=== PATIENT | male | born 1960 | race Caucasian/White ===

== ENCOUNTER 2020-11-10 16:24 | Emergency (ER) | payer OTHER, SELFPAY | END 2020-11-11 02:43 | disposition left against medical advice (07) | LOC: ANHED 16:56 | DX: Z53.21 Procedure and treatment not carried out due to patient leaving prior to being seen by health care provider (principal) | CPT/HCPCS: 99199 ==

== ENCOUNTER 2020-11-11 07:11 | Emergency (ER) | payer OTHER, SELFPAY ==
[2020-11-11 07:16] VITALS: BP 134/86; PULSE 56; RESP 20; TEMP 36.5; O2SAT 98
--- NOTE | 2020-11-11 08:39 | ED.GENADULT ---
HPI - General Adult General Chief complaint: Eye Problems Stated complaint: cellulitis Time Seen by Provider: 11/11/20 08:21 Source: patient Mode of arrival: ambulatory Limitations: no limitations History of Present Illness HPI narrative: 60 years old white male presents with redness and pain at the right upper eyelid started 6 days ago. Patient reported having a pimple-like lesion, popped it and squeezed it. Was seen at urgent care yesterday and was asked to go to the emergency room, patient came today. Patient denies any fever, chills, nausea, vomiting, vision change, eye discharge, history of hyperlipidemia, patient denies history of diabetes or any medical issues. Patient does not smoke or drink or uses drugs. Related Data Home Medications Medication Instructions Recorded Confirmed aspirin 81 mg PO DAILY 01/06/19 01/06/19 atorvastatin [Lipitor] 10 mg PO DAILY 01/06/19 01/06/19 cetirizine [Zyrtec] 10 mg PO DAILY 01/06/19 01/06/19 cholecalciferol (vitamin D3) 1,000 unit PO DAILY 01/06/19 01/06/19 [Vitamin D3] citalopram [Celexa] 20 mg PO DAILY 01/06/19 01/06/19 docusate sodium [Colace] 100 mg PO BID 01/06/19 01/06/19 fenofibrate 160 mg PO DAILY 01/06/19 01/06/19 flaxseed oil 1,000 mg PO DAILY 01/06/19 01/06/19 omeprazole magnesium [Prilosec OTC] 20 mg PO BID 01/06/19 01/06/19 linaclotide [Linzess] mcg 11/11/20 Allergies Allergy/AdvReac Type Severity Reaction Status Date / Time No Known Allergies Allergy Verified 11/11/20 07:25 Review of Systems Review of Systems: CONSTITUTIONAL: Denies fever, chills, or sweats. EYES: Denies visual changes, redness, or discharge. ENT: Denies rhinorrhea, congestion, sore throat, or otalgia. CARDIOVASCULAR: Denies chest pain, palpitations, or edema. RESPIRATORY: Denies cough or dyspnea. GASTROINTESTINAL: Denies abdominal pain, nausea, vomiting, or diarrhea. GENITOURINARY: Denies dysuria or hematuria. SKIN: Denies rash or itching. MUSCULOSKELETAL: Denies back pain, joint pain, or myalgia. NEUROLOGIC: Denies headache, numbness, or weakness. PSYCHIATRIC: Denies anxiety or depression. [facility] Past Medical History Medical History Anxiety Depression Fracture, clavicle right,1979 GERD (gastroesophageal reflux disease) HLD (hyperlipidemia) Surgical History Surgical History History of cholecystectomy Family History Family History Sibling Acute myocardial infarction, Onset Age: 48 Mother Breast cancer Exam Narrative: General appearance: Well-developed, well-nourished Skin: Normal color Head: Normocephalic, nontraumatic Eyes: Clear conjunctiva ENT: Oropharynx normal, ears normal, nose normal Neck: Supple, nontender Chest and respiratory: Airway patent, no respiratory distress, no accessory muscle use Heart: Regular rate/rhythm Abdomen: Soft, nontender, no organomegaly, quiet bowel sounds Vascular: Normal peripheral pulses, normal capillary refill. 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
[2020-11-11 08:49] LABS: Basophils Percent Auto 0.7 % (0.2-1.2); Eosinophils Absolute Auto 0.3 K/mm3 (0-0.3); Eosinophils Percent Auto 5.2 % (0-4.4); Hematocrit 41.9 % (42.0-52.0); Hemoglobin 14.2 g/dL (14.0-18.0); Immature Granulocyte Absolute 0.02 K/mm3 (0.00-0.031); Immature Granulocyte Percent A 0.4 % (0-0.5); Lymphocytes Absolute Auto 1.63 K/mm3 (0.9-3.2); Lymphocytes Percent Auto 29.3 % (18.3-44.2); Mean Corpuscular HGB Conc 33.9 g/dl (32-36); Mean Corpuscular Hemoglobin 29.9 pg (26-34); Mean Corpuscular Volume 88.2 fl (80-100); Mean Platelet Volume 10.4 fl (7.4-10.4); Monocytes Absolute Auto 0.6 K/mm3 (0.1-0.6); Monocytes Percent Auto 10.2 % (2.6-8.5); Neutrophils Percent Auto 54.2 % (45.5-73.1); Platelet Count Result 234 k/mm3 (150-375); Red Blood Count 4.75 M/mm3 (4.6-6.20); Red Cell Distribution Width 13.3 % (11.5-14.5); White Blood Count 5.6 K/mm3 (4.5-10.0)
[2020-11-11 09:12] LABS: Anion Gap 7 mmol/L (8-16); Blood Urea Nitrogen 12 mg/dL (9-20); Calcium 9.1 mg/dL (8.4-10.2); Carbon Dioxide 26 mmol/L (22-30); Chloride 106 mmol/L (98-107); Estimated CRCL calculation 110 ml/min; Estimated Glomerular Filt Rate > 60; Glucose 117 mg/dL (65-110); Potassium 3.8 mmol/L (3.4-5.0); Sodium 139 mmol/L (137-145)
[2020-11-11 09:31] VITALS: BP 119/68; PULSE 56; RESP 18; O2SAT 98
[2020-11-11 10:47] VITALS: BP 107/68; PULSE 55; RESP 20; TEMP 36.5; O2SAT 99
[2020-11-11 11:30] VITALS: BP 109/65; PULSE 55; RESP 20; O2SAT 97
== END 2020-11-11 11:32 | disposition home or self-care (01) ==
PROVIDERS: Emergency Provider Emergency Medicine
DX: L03.213 Periorbital cellulitis (principal); E78.5 Hyperlipidemia, unspecified; Z79.82 Long term (current) use of aspirin; Z79.899 Other long term (current) drug therapy
CPT/HCPCS: 36415; 80048; 85025; 96365; 96366; 99284; J3370

== ENCOUNTER → 2020-11-21 10:33 | Outpatient (CLI) | payer OTHER, SELFPAY ==
--- NOTE | ~2020-11-21 | XR_ITS ---
XR barium swallow DATE: 11/21/2020 11:53 INDICATION: Lump on left side of esophagus when swallowing saliva since May 2020. History of acid r eflux. TECHNIQUE: 0.5 minutes fluoroscopy time 88 images DAP: 17.845 COMPARISON: None FINDINGS: There is normal deglutition and esophageal peristalsis. No stricture, mucosal fold thickeni ng, erosion, ulceration, intraluminal mass lesion or diverticulum of the esophagus is detected. IMPRESSION: Negative examination Reviewed, dictated and finalized at [facility]. Reviewed, dictated and finalized at [facility]. IMPRESSION: Negative examination
== END ==
PROVIDERS: Visit Provider Otolaryngology
DX: R13.10 Dysphagia, unspecified (principal)
CPT/HCPCS: 74220

== ENCOUNTER 2021-01-12 10:26 | Emergency (ER) | payer OTHER, SELFPAY ==
--- NOTE | ~2021-01-12 | US_ITS ---
EXAMINATION: US venous doppler [facility] DATE: 01/12/2021 11:14 INDICATION: Left lower limb swelling. TECHNIQUE: Grayscale ultrasound images without and with compression and Doppler ultrasound images of the left lower extremity veins were obtained. COMPARISON: None. FINDINGS: The visualized portions of left common femoral vein, profunda (deep) femoral vein, femoral vein, popl iteal vein, peroneal veins, posterior tibial veins, and greater saphenous vein outflow are patent. Th ere is a fluid collection in the left can measuring 1.0 cm by at least 5.5 cm. IMPRESSION: 1. No deep venous thrombosis. 2. Fluid collection in the left can, likely a hematoma. Reviewed, dictated and finalized at location [facility]. [employer]
[2021-01-12 10:53] VITALS: BP 140/81; PULSE 75; RESP 16; TEMP 36.8; O2SAT 100
[2021-01-12 11:05] LABS: Basophils Absolute Auto 0.1 K/mm3 (0.0-0.1); Basophils Percent Auto 0.6 % (0.2-1.2); Eosinophils Absolute Auto 0.2 K/mm3 (0-0.3); Hematocrit 41.7 % (42.0-52.0); Hemoglobin 14.2 g/dL (14.0-18.0); Immature Granulocyte Absolute 0.02 K/mm3 (0.00-0.031); Immature Granulocyte Percent A 0.3 % (0-0.5); Lymphocytes Absolute Auto 0.75 K/mm3 (0.9-3.2); Lymphocytes Percent Auto 9.6 % (18.3-44.2); Mean Corpuscular HGB Conc 34.1 g/dl (32-36); Mean Corpuscular Hemoglobin 29.7 pg (26-34); Mean Corpuscular Volume 87.2 fl (80-100); Monocytes Absolute Auto 0.6 K/mm3 (0.1-0.6); Monocytes Percent Auto 8.2 % (2.6-8.5); Neutrophils Absolute Auto 6.2 K/mm3 (1.3-6.7); Neutrophils Percent Auto 79.3 % (45.5-73.1); Platelet Count Result 235 k/mm3 (150-375); Red Blood Count 4.78 M/mm3 (4.6-6.20); Red Cell Distribution Width 13.2 % (11.5-14.5); White Blood Count 7.8 K/mm3 (4.5-10.0)
[2021-01-12 11:15] LABS: Anion Gap 9 mmol/L (8-16); Blood Urea Nitrogen 14 mg/dL (9-20); Calcium 9.2 mg/dL (8.4-10.2); Carbon Dioxide 25 mmol/L (22-30); Chloride 102 mmol/L (98-107); Estimated CRCL calculation 98 ml/min; Estimated Glomerular Filt Rate > 60; Glucose 92 mg/dL (65-110); Potassium 3.9 mmol/L (3.4-5.0); Sodium 136 mmol/L (137-145)
--- NOTE | 2021-01-12 12:00 | ED.WOUNDLAC ---
HPI - Wound/Laceration General Chief Complaint: Wound/Laceration Stated Complaint: L LEG INJURY ?CELLULITIS Time Seen by Provider: 01/12/21 10:38 History of Present Illness HPI narrative: Patient is a 60-year-old male who presents ER with swelling to the left can and foot. Reports last week he got his foot stuck on her appliance and then struck his can on a trailer while he fell. He was initially seen at [facility] for hematoma over his can. That has since gone down in size but his leg is started to swell. There is an abrasion over the anterior portion of the can that he reports has had scant discharge. No fevers or chills or sweats. No lymphangitic streaking. He is concerned he could be developing a cellulitis. No additional trauma. No history of DVT. Related Data Home Medications Medication Instructions Recorded Confirmed aspirin 81 mg PO DAILY 01/06/19 01/06/19 atorvastatin [Lipitor] 10 mg PO DAILY 01/06/19 01/06/19 cetirizine [Zyrtec] 10 mg PO DAILY 01/06/19 01/06/19 cholecalciferol (vitamin D3) 1,000 unit PO DAILY 01/06/19 01/06/19 [Vitamin D3] citalopram [Celexa] 20 mg PO DAILY 01/06/19 01/06/19 docusate sodium [Colace] 100 mg PO BID 01/06/19 01/06/19 fenofibrate 160 mg PO DAILY 01/06/19 01/06/19 flaxseed oil 1,000 mg PO DAILY 01/06/19 01/06/19 omeprazole magnesium [Prilosec OTC] 20 mg PO BID 01/06/19 01/06/19 linaclotide [Linzess] mcg 11/11/20 Allergies Allergy/AdvReac Type Severity Reaction Status Date / Time No Known Allergies Allergy Verified 11/11/20 07:25 Review of Systems Review of Systems: All systems reviewed & are unremarkable except as noted in HPI and below Constitutional: Constitutional: Denies chills, Denies fever(s) and Denies weakness ENT: Denies nasal congestion and Denies sore throat Cardiovascular: Cardiovascular: Denies chest pain, Denies rapid heart rate and Denies radiating jaw, neck or arm pain Respiratory: Respiratory: Denies cough, Denies dyspnea and Denies wheezing Musculoskeletal: Musculoskeletal: Denies arthralgias and Denies joint swelling Integumentary/Breasts: Skin/Breast: Reports erythema Comments: LLE edema PMFSH Past Medical History Medical History Anxiety Depression Fracture, clavicle right,1979 GERD (gastroesophageal reflux disease) HLD (hyperlipidemia) Surgical History Surgical History History of cholecystectomy Family History Family History Sibling Acute myocardial infarction, Onset Age: 48 Mother Breast cancer Exam Narrative: GENERAL: Well-appearing, well-nourished, and in no acute distress. HEAD: Normocephalic, atraumatic. CHEST: Clear to auscultation. No respiratory distress. HEART: Regular rate and rhythm. Normal peripheral pulses. EXTREMITIES: Normal range of motion. 2+ edema left lower extremity below the can. Edema in the right lower extremity. SKIN: Warm, dry, no rash. Superficial abrasion that is healing over the left can with slight redness and warmth. Mild tenderness. NEURO: Alert and oriented x3. PSYCH: Normal mood and affect. Course Course Emergency Course: Symptoms likely related to resolving hematoma however will place him on antibiotic given the redness and increased discomfort. Vital Signs Vital signs: Vital Signs Temperature 98.2 F 01/12/21 10:53 Pulse Rate 75 01/12/21 10:53 Respiratory Rate 16 01/12/21 10:53 Blood Pressure 140/81 01/12/21 10:53 Pulse Oximetry 100 01/12/21 10:53 Temperature 98.2 F 01/12/21 10:53 Pulse Rate 75 01/12/21 10:53 Respiratory Rate 16 01/12/21 10:53 Blood Pressure 140/81 01/12/21 10:53 Pulse Oximetry 100 01/12/21 10:53 MDM - Wound/Laceration Lab Data Result diagrams: 01/12/21 10:55 01/12/21 10:55 Labs: Lab Results 01/12/21 01/12/21 Range/Units 10:55 10
== END 2021-01-12 12:30 | disposition home or self-care (01) ==
PROVIDERS: Emergency Provider Emergency Medicine
DX: L03.116 Cellulitis of left lower limb (principal); S80.12XA Contusion of left lower leg, initial encounter; F41.9 Anxiety disorder, unspecified; F32.A Depression, unspecified; K21.9 Gastro-esophageal reflux disease without esophagitis; E78.5 Hyperlipidemia, unspecified; Z79.82 Long term (current) use of aspirin; W22.8XXA Striking against or struck by other objects, initial encounter
CPT/HCPCS: 36415; 80048; 85025; 93971; 99284

== ENCOUNTER 2021-03-31 14:44 | Emergency (ER) | payer OTHER, SELFPAY ==
[2021-03-31 15:07] VITALS: BP 140/80; PULSE 72; RESP 18; TEMP 36.8; O2SAT 99
--- NOTE | 2021-03-31 15:46 | ED.GENADULT ---
HPI - General Adult General Chief complaint: Extremity Injury, Lower Stated complaint: pain in back of rt thigh Time Seen by Provider: 03/31/21 15:27 Source: patient and RN notes reviewed Mode of arrival: ambulatory Limitations: no limitations History of Present Illness HPI narrative: Patient presents today complaining of pain to the posterior right upper leg since Kim. States the pain has been slowly worsening since onset. Denies any injury or trauma. Has occasional radiation to the posterior thigh. Denies numbness or tingling. Denies swelling or discoloration. Currently rates pain 5/10, which increases with pressure while sitting. He has been using ice, heat without relief. He does use a topical analgesic at night, which does provide some relief so he can sleep. States he walks 1 mile per day, but is otherwise sedentary at work. MD complaint: Leg pain Related Data Home Medications Medication Instructions Recorded Confirmed aspirin 81 mg PO DAILY 01/06/19 03/31/21 atorvastatin [Lipitor] 40 mg PO DAILY 01/06/19 03/31/21 cetirizine [Zyrtec] 10 mg PO DAILY 01/06/19 03/31/21 cholecalciferol (vitamin D3) 1,000 unit PO DAILY 01/06/19 03/31/21 [Vitamin D3] citalopram [Celexa] 20 mg PO DAILY 01/06/19 03/31/21 docusate sodium [Colace] 100 mg PO BID 01/06/19 03/31/21 fenofibrate 160 mg PO DAILY 01/06/19 03/31/21 omeprazole magnesium [Prilosec OTC] 20 mg PO BID 01/06/19 03/31/21 linaclotide [Linzess] 145 mcg DAILY 11/11/20 Allergies Allergy/AdvReac Type Severity Reaction Status Date / Time No Known Allergies Allergy Verified 03/31/21 15:29 Review of Systems Review of Systems: CONSTITUTIONAL: Denies body aches, fever, chills, or sweats. EYES: Denies visual changes, redness, or discharge. ENT: Denies rhinorrhea, congestion, sore throat, or otalgia. CARDIOVASCULAR: Denies chest pain, palpitations, or edema. RESPIRATORY: Denies cough or dyspnea. GASTROINTESTINAL: Denies abdominal pain, nausea, vomiting, or diarrhea. GENITOURINARY: Denies dysuria or hematuria. SKIN: Denies rash, itching, or wounds. MUSCULOSKELETAL: Denies back pain. + Right upper leg pain NEUROLOGIC: Denies headache, numbness, tingling, or weakness. PSYCH: Denies depression or anxiety. [facility] Past Medical History Medical History Anxiety Depression Fracture, clavicle right,1979 GERD (gastroesophageal reflux disease) HLD (hyperlipidemia) Surgical History Surgical History History of cholecystectomy Family History Family History Sibling Acute myocardial infarction, Onset Age: 48 Mother Breast cancer Comments At time of signature, I have reviewed and agree with nursing past medical, surgical, social and family history unless otherwise noted. Please see nursing chart for further information. There is no relevant family history pertinent to the presenting complaint Exam Narrative: GENERAL: Well-appearing, well-nourished, and in no acute distress. HEAD: Normocephalic, atraumatic. EYES: EOMI. No redness or drainage. Conjunctivae normal. ENT: Mucous membranes pink and moist. NECK: Normal AROM. CHEST: No respiratory distress. MUSCULOSKELETAL: No bony tenderness of the spine. No SI joint tenderness. EXTREMITIES: Normal range of motion. No edema. Right upper leg: Half-dollar sized area of muscular point tenderness to the mid posterior right upper leg. No discoloration, edema, induration, erythema, cords noted. Distal sensation intact. Capillary refill normal. Pedal pulses normal. No pain with light touch. SKIN: Warm, dry, no rash. Capillary refill normal. Normal skin turgor. NEURO: No focal deficits. Alert and oriented x3. Gait steady. PSYCH: Normal affect. No signs of depression or anxiety. Course Course Level of Care: [facility] Care Visit Vi
== END 2021-03-31 15:57 | disposition home or self-care (01) ==
PROVIDERS: Emergency Provider Nurse Practitioner
DX: M79.651 Pain in right thigh (principal); K21.9 Gastro-esophageal reflux disease without esophagitis; E78.5 Hyperlipidemia, unspecified; F32.A Depression, unspecified
CPT/HCPCS: 99213; G0463

== ENCOUNTER 2021-06-16 11:57 | Emergency (ER) | payer OTHER, SELFPAY ==
[2021-06-16 12:04] VITALS: BP 140/81; PULSE 67; RESP 18; TEMP 36.5; O2SAT 99
--- NOTE | 2021-06-16 12:26 | ED.NAVMDI ---
HPI - Nausea/Vomiting/Diarrhea General Chief complaint: Nausea/Vomiting/Diarrhea Stated complaint: Stomach Pain,Diarrhea Time Seen by Provider: 06/16/21 12:26 Source: patient Mode of arrival: ambulatory Limitations: no limitations History of Present Illness HPI Narrative: Yamil Mariscal is a 61 yo male with PMH of high cholesterol, seasonal allergies,depression,IBS-C, GERD, who comes to express care with diarrhea since 06/06; returned from [facility] on 06/05, has not taken anything. He thinks he got a parasite on vacation. Wants stool specimen done Related Data Home Medications Medication Instructions Recorded Confirmed aspirin 81 mg PO DAILY 01/06/19 06/16/21 atorvastatin [Lipitor] 40 mg PO DAILY 01/06/19 06/16/21 cetirizine [Zyrtec] 10 mg PO DAILY 01/06/19 06/16/21 cholecalciferol (vitamin D3) 1,000 unit PO DAILY 01/06/19 06/16/21 [Vitamin D3] citalopram [Celexa] 20 mg PO DAILY 01/06/19 06/16/21 docusate sodium [Colace] 100 mg PO BID 01/06/19 06/16/21 fenofibrate 160 mg PO DAILY 01/06/19 06/16/21 omeprazole magnesium [Prilosec OTC] 20 mg PO BID 01/06/19 06/16/21 linaclotide [Linzess] 145 mcg DAILY 11/11/20 06/16/21 Allergies Allergy/AdvReac Type Severity Reaction Status Date / Time No Known Allergies Allergy Verified 06/16/21 12:06 Review of Systems Review of Systems: CONSTITUTIONAL: Denies fever, chills, sweats. EYES: Denies visual changes, redness, discharge. ENT: Denies rhinorrhea, congestion, sore throat, otalgia. CARDIOVASCULAR: Denies chest pain, palpitations, edema. RESPIRATORY: Denies dyspnea, wheezing, cough GASTROINTESTINAL: Denies abdominal pain, nausea, vomiting, has diarrhea. GENITOURINARY: Denies dysuria, hematuria, abnormal discharge SKIN: Denies rash or itching. NEUROLOGIC: Denies numbness, or focal weakness. PSYCHIATRIC: Denies anxiety or depression. [facility] Past Medical History Medical History Anxiety Depression Fracture, clavicle right,1979 GERD (gastroesophageal reflux disease) HLD (hyperlipidemia) Surgical History Surgical History History of cholecystectomy Family History Family History Sibling Acute myocardial infarction, Onset Age: 48 Mother Breast cancer Comments Nursing Exam Narrative: GENERAL: This is a well-nourished, well-developed patient, in mild distress. HEAD: normocephalic, atraumatic. EYES: . Sclera clear/white. Vision is grossly intact. EARS: External ears normal, . Hearing grossly intact. NOSE: External nose normal without nasal discharge, nares without redness, no rhinorrhea. THROAT: Mucous membranes moist, NECK: Neck supple, non-tender CARDIOVASCULAR: Regular rate and rhythm without murmurs, gallops, or rubs. RESPIRATORY: Clear to auscultation. Breath sounds equal bilaterally. No wheezes, rales, or rhonchi. GASTROINTESTINAL: Abdomen soft, non-tender, BS normoactive SKIN: warm, intact with no suspicious lesions or rash, good texture and turgor. NEURO: awake, alert, and oriented to person, place and time. There were no obvious focal neurologic abnormalities. Steady gait EXTREMITIES: Normal range of motion. BACK: Nontender without deformity Course Course Emergency Course: Patient has had diarrhea for 11 days Needs stool specimen done for ova and parasites states that the pain is not like IBS with constipation Given order to go to [facility] lab to get stool specimen done and results forwarded to Dr. Emanuel which is his physician not [facility] Level of Care: Express Care Visit Vital Signs Vital signs: Vital Signs Temperature 97.7 F 06/16/21 12:04 Pulse Rate 67 06/16/21 12:04 Respiratory Rate 18 06/16/21 12:04 Blood Pressure 140/81 06/16/21 12:04 Pulse Oximetry 99 06/16/21 12:04 Temperature 97.7 F 06/16/21 12:04 Pulse Rate 67 06/16
== END 2021-06-16 13:01 | disposition home or self-care (01) ==
PROVIDERS: Emergency Provider Nurse Practitioner
DX: R19.7 Diarrhea, unspecified (principal); E78.00 Pure hypercholesterolemia, unspecified; K21.9 Gastro-esophageal reflux disease without esophagitis; F32.A Depression, unspecified; E78.5 Hyperlipidemia, unspecified; Z79.82 Long term (current) use of aspirin
CPT/HCPCS: 99211; G0463

== ENCOUNTER 2021-12-31 09:35 | Emergency (ER) | payer OTHER, SELFPAY ==
[2021-12-31] VITALS (10 sets, daily range): BP systolic 124–147; BP diastolic 68–87; PULSE 60–62; RESP 16–18; TEMP 36.5; O2SAT 97–100
--- NOTE | ~2021-12-31 | CT_ITS ---
EXAMINATION: CT abdomen pelvis w con DATE: 12/31/2021 11:11 INDICATION: Abdominal pain, nausea and vomiting. Chills. TECHNIQUE: Computed tomography (CT) of the abdomen and pelvis was performed with 100 CC Omnipaque 350 intravenous contrast. Automated exposure control and iterative reconstruction technique were employe d. Exam dose: 1398.54 mGy-cm total exam DLP. COMPARISON: None. FINDINGS: The lung bases are clear of consolidation. Normal range. No pericardial or pleural effusion . A 1.5 cm medial segment left hepatic cyst. Status post cholecystectomy. No bile duct or pancreatic duct dilatation. There are several hypoattenuating lesions of the pancreas, measuring up to 2 cm maximal dimension. Di fferential diagnosis includes intraductal papillary mucinous neoplasm, mucinous cystic neoplasm, sero us cystadenoma, pseudocyst, less likely neuroendocrine tumor. Normal splenic size. Normal morphology of the adrenal glands. 3.8 mm lower pole right renal cyst. The kidneys are unremarkable. No urinary tract calculus or hydrou reteronephrosis. There is diffuse thickening of the urinary bladder wall. Mild prostate enlargement. Normal caliber of the abdominal aorta. No intraperitoneal or retroperitoneal or pelvic mass lesion or adenopathy or ascites. There are numerous fluid distended nondilated small bowel segments with scattered small bowel air-flu id levels. Findings may be due to enteritis or mild adynamic ileus. No bowel obstruction or intraperi toneal free air. Diffuse idiopathic skeletal hyperostosis of the thoracic spine. No suspicious osteolytic or osteoblas tic lesions. IMPRESSION: 1.5 cm left hepatic cyst Status post cholecystectomy Hypoattenuating lesions of the pancreas; differential diagnosis is given above Very small lower pole right renal cyst Nondilated fluid distended small bowel segments with air-fluid levels, possibly due to enteritis or m ild adynamic ileus; no bowel obstruction Reviewed, dictated and finalized at [facility]. Reviewed, dictated and finalized at location [facility]. [employer] IMPRESSION: 1.5 cm left hepatic cyst Status post cholecystectomy Hypoattenuating lesions of the pancreas; differential diagnosis is given above Very small lower pole right renal cyst Nondilated fluid distended small bowel segments with air-fluid levels, possibly due to enteritis or mild adynamic ileus; no bowel obstruction
[2021-12-31 09:55] LABS: Basophils Percent Auto 0.5 % (0.2-1.2); Eosinophils Absolute Auto 0.1 K/mm3 (0-0.3); Eosinophils Percent Auto 3.1 % (0-4.4); Hematocrit 45.7 % (42.0-52.0); Hemoglobin 15.2 g/dL (14.0-18.0); Immature Granulocyte Absolute 0.01 K/mm3 (0.00-0.031); Immature Granulocyte Percent A 0.2 % (0-0.5); Lymphocytes Absolute Auto 1.14 K/mm3 (0.9-3.2); Lymphocytes Percent Auto 27.3 % (18.3-44.2); Mean Corpuscular HGB Conc 33.3 g/dl (32-36); Mean Corpuscular Hemoglobin 29.1 pg (26-34); Mean Corpuscular Volume 87.5 fl (80-100); Mean Platelet Volume 10.3 fl (7.4-10.4); Monocytes Absolute Auto 0.8 K/mm3 (0.1-0.6); Monocytes Percent Auto 18.9 % (2.6-8.5); Neutrophils Absolute Auto 2.1 K/mm3 (1.3-6.7); Platelet Count Result 234 k/mm3 (150-375); Red Blood Count 5.22 M/mm3 (4.6-6.20); Red Cell Distribution Width 13.3 % (11.5-14.5); White Blood Count 4.2 K/mm3 (4.5-10.0)
[2021-12-31 10:05] LABS: Alanine Aminotransferase 36 U/L (6-50); Albumin Level 4.6 g/dL (3.5-5.1); Alkaline Phosphatase 45 U/L (38-126); Anion Gap 13 mmol/L (8-16); Aspartate Amino Transferase 44 U/L (17-59); Bilirubin,Total 0.5 mg/dL (0.2-1.3); Blood Urea Nitrogen 12 mg/dL (9-20); Calcium 8.5 mg/dL (8.4-10.2); Carbon Dioxide 25 mmol/L (22-30); Chloride 103 mmol/L (98-107); Estimated CRCL calculation 98 ml/min; Estimated Glomerular Filt Rate > 60; Glucose 108 mg/dL (65-110); Lipase 164 U/L (23-300); Potassium 3.7 mmol/L (3.4-5.0); Sodium 141 mmol/L (137-145)
[2021-12-31 10:43] LABS: Influenza A QL RT-PCR Negative (Negative); Influenza B QL RT-PCR Negative (Negative); RSV RNA, RT-PCR Negative (Negative); SARS-CoV-2 RNA PCR Negative
[2021-12-31 10:47] LABS: Appearance Urine Clear (Clear); Bilirubin Urine 1+ (Negative); Blood Urine Trace-intact (Negative); Color Urine Yellow (Yellow); Glucose Urine UA Trace mg/dL (Negative); Ketones Urine Negative (Negative); Leukocyte Esterase Ur Negative LEU/UL (Negative); Nitrate Urine Negative (Negative); Protein Urine Negative (Negative); Specific Grav Ur 1.015 (1.001-1.035); pH Urine 6.5 (5.0-9.0)
--- NOTE | 2021-12-31 10:48 | ED.NAVMDI ---
HPI - Nausea/Vomiting/Diarrhea General Chief complaint: Nausea/Vomiting/Diarrhea Stated complaint: vomiting, sweats, body aches, food poisoning Time Seen by Provider: 12/31/21 10:07 Source: patient Mode of arrival: ambulatory Limitations: no limitations History of Present Illness HPI Narrative: Patient presents with nausea vomiting abdominal pain started 4 days ago, the above symptoms are gradually getting better. Patient denies any fever, chills, diarrhea. The pain in the abdomen right now is diffuse, generalized. History of cholecystectomy and hyperlipidemia. Patient does not smoke or drink or uses drugs. Related Data Home Medications Medication Instructions Recorded Confirmed aspirin 81 mg chewable tablet 81 mg PO DAILY 01/06/19 06/16/21 atorvastatin 10 mg tablet (Lipitor) 40 mg PO DAILY 01/06/19 06/16/21 cetirizine 10 mg capsule (Zyrtec) 10 mg PO DAILY 01/06/19 06/16/21 cholecalciferol (vitamin D3) 25 1,000 unit PO DAILY 01/06/19 06/16/21 mcg (1,000 unit) capsule (Vitamin D3) citalopram 20 mg tablet (Celexa) 20 mg PO DAILY 01/06/19 06/16/21 docusate sodium 100 mg capsule 100 mg PO BID 01/06/19 06/16/21 (Colace) fenofibrate 160 mg tablet 160 mg PO DAILY 01/06/19 06/16/21 omeprazole magnesium 20 mg 20 mg PO BID 01/06/19 06/16/21 tablet,delayed release (Prilosec OTC) linaclotide 145 mcg capsule 145 mcg DAILY 11/11/20 06/16/21 (Linzess) Allergies Allergy/AdvReac Type Severity Reaction Status Date / Time No Known Allergies Allergy Verified 12/31/21 11:17 Review of Systems Review of Systems: All systems reviewed & are unremarkable except as noted in HPI and below PMFSH Past Medical History Medical History Anxiety Depression Fracture, clavicle right,1979 GERD (gastroesophageal reflux disease) HLD (hyperlipidemia) Surgical History Surgical History History of cholecystectomy Family History Family History Sibling Acute myocardial infarction, Onset Age: 48 Mother Breast cancer Exam Narrative: General appearance: Well-developed, well-nourished Skin: Normal color Head: Normocephalic, nontraumatic Eyes: Clear conjunctiva ENT: Oropharynx normal, ears normal, nose normal Neck: Supple, nontender Chest and respiratory: Airway patent, no respiratory distress, no accessory muscle use Heart: Regular rate/rhythm Abdomen: Soft, diffuse tenderness, no organomegaly, quiet bowel sounds Vascular: Normal peripheral pulses, normal capillary refill. 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 Patient symptoms are improving, patient will be discharged on Zofran and liquid diet. Vital Signs Vital signs: Vital Signs Temperature 36.5 C 12/31/21 09:39 Pulse Rate 60 12/31/21 09:39 Respiratory Rate 16 12/31/21 09:39 Blood Pressure 131/79 12/31/21 09:39 Pulse Oximetry 98 12/31/21 09:39 Oxygen Delivery Room Air 12/31/21 09:39 Temperature 36.5 C 12/31/21 09:39 Pulse Rate 60 12/31/21 09:39 Respiratory Rate 16 12/31/21 09:39 Blood Pressure 135/81 12/31/21 12:16 Pulse Oximetry 99 12/31/21 12:16 Oxygen Delivery Room Air 12/31/21 09:39 MDM - Nausea/Vomiting/Diarrhea Differential Aggie
[2021-12-31 11:15] LABS: Mucus Urine Moderate /lpf; WBC Urine 0-3 /hpf
[2021-12-31] MEDS: SODIUM CHLORIDE 0.9% IV 2,000 ML 999 ML IV CONT (11:18)
[2021-12-31] MEDS: ONDANSETRON INJ 4 MG/2 ML VIAL IV PUSH (11:18)
[2021-12-31 11:25] LABS: Add Urine Microscopic? YES
== END 2021-12-31 13:05 | disposition home or self-care (01) ==
PROVIDERS: Emergency Provider Emergency Medicine
DX: K52.9 Noninfective gastroenteritis and colitis, unspecified (principal); K86.9 Disease of pancreas, unspecified; Z20.822 Contact with and (suspected) exposure to COVID-19; E78.5 Hyperlipidemia, unspecified; K21.9 Gastro-esophageal reflux disease without esophagitis; F41.9 Anxiety disorder, unspecified; F32.A Depression, unspecified; Z79.82 Long term (current) use of aspirin; K76.89 Other specified diseases of liver; N28.1 Cyst of kidney, acquired
CPT/HCPCS: 36415; 74177; 80053; 81001; 83690; 85025; 87637; 96361; 96374; 99284; J2405; J7030; Q9967

== ENCOUNTER 2022-05-03 16:20 | Observation (INO) | payer OTHER, SELFPAY ==
--- NOTE | ~2022-05-03 | XR_ITS ---
EXAMINATION: XR chest 2V DATE: 05/03/2022 17:08 INDICATION: Central chest pain TECHNIQUE: PA and lateral views of the chest were obtained. COMPARISON: CT abdomen pelvis dated 12/31/2021 FINDINGS: Mild elevation of the left hemidiaphragm. No focal airspace opacities, pulmonary edema, pleural effus ion or pneumothorax. The cardiomediastinal silhouette is normal. Cholecystectomy clips in the right u pper quadrant. Chronic mild anterior wedging at T11 and T12. IMPRESSION: 1. No acute cardiopulmonary disease. Reviewed, dictated and finalized at location A. CHUTE SUPERVISOR
--- NOTE | ~2022-05-03 | NM_ITS ---
EXAMINATION: NM maria g stress w perfusion DATE: 05/04/2022 13:24 INDICATION: Chest pain. TECHNIQUE: Rest images were obtained following intravenous administration of 10.57 mCi Tc99m tetrofos min (Myoview). The patient was infused intravenously with Lexiscan (regadenoson). Then, 32.7 mCi Tc99 m tetrofosmin (Myoview) was administered intravenously, and stress images were obtained. Data was rec onstructed into short axis and horizontal and vertical long axis SPECT images. Gated SPECT images wer e also obtained. COMPARISON: CT abdomen and pelvis 12/31/2021 FINDINGS: There is no definite reversible or fixed perfusion abnormality to suggest ischemia or infar ction. There is no segmental wall motion abnormality. Left ventricular ejection fraction measures > 70%. IMPRESSION: 1. No definite ischemia or infarct. 2. Normal left ventricular ejection fraction measuring >70%. Reviewed, dictated and finalized at location A. ZEN PARTICIPATION SPECIALIST
--- NOTE | 2022-05-03 16:24 | ECG_ITS ---
Measurements Intervals [place] Rate: 64 P: 77 [place]: 173 QRS: 13 QRSD: 102 T: 40 QT: 398 QTc: 411 Interpretive Statements SINUS RHYTHM ATRIAL PREMATURE COMPLEXES BORDERLINE ECG NO PREVIOUS ECG AVAILABLE FOR COMPARISON Electronically Signed On 05-03-2022 19:10:14 FRAME WIRER by Ovidio Gallegos D.O.
[2022-05-03 17:04] LABS: Basophils Percent Auto 0.5 % (0.2-1.2); Eosinophils Absolute Auto 0.1 K/mm3 (0-0.3); Hemoglobin 14.6 g/dL (14.0-18.0); Immature Granulocyte Absolute 0.02 K/mm3 (0.00-0.031); Immature Granulocyte Percent A 0.2 % (0-0.5); Lymphocytes Absolute Auto 1.23 K/mm3 (0.9-3.2); Lymphocytes Percent Auto 14.7 % (18.3-44.2); Mean Corpuscular HGB Conc 33.2 g/dl (32-36); Mean Corpuscular Hemoglobin 29.1 pg (26-34); Mean Corpuscular Volume 87.8 fl (80-100); Mean Platelet Volume 10.4 fl (7.4-10.4); Monocytes Absolute Auto 0.6 K/mm3 (0.1-0.6); Monocytes Percent Auto 6.7 % (2.6-8.5); Neutrophils Absolute Auto 6.4 K/mm3 (1.3-6.7); Neutrophils Percent Auto 76.9 % (45.5-73.1); Platelet Count Result 267 k/mm3 (150-375); Red Blood Count 5.01 M/mm3 (4.6-6.20); Red Cell Distribution Width 13.6 % (11.5-14.5); White Blood Count 8.3 K/mm3 (4.5-10.0)
[2022-05-03 17:14] LABS: Alanine Aminotransferase 35 U/L (6-50); Albumin Level 4.6 g/dL (3.5-5.1); Alkaline Phosphatase 50 U/L (38-126); Anion Gap 8 mmol/L (8-16); Aspartate Amino Transferase 31 U/L (17-59); Bilirubin,Total 0.6 mg/dL (0.2-1.3); Blood Urea Nitrogen 11 mg/dL (9-20); Calcium 9.1 mg/dL (8.4-10.2); Carbon Dioxide 26 mmol/L (22-30); Chloride 102 mmol/L (98-107); Estimated Glomerular Filt Rate > 60; Glucose 109 mg/dL (65-110); Lipase 87 U/L (23-300); Potassium 3.9 mmol/L (3.4-5.0); Sodium 136 mmol/L (137-145)
[2022-05-03 17:15] LABS: Prothrombin Time 12.7 Seconds (11.1-14.7)
[2022-05-03 17:16] LABS: Partial Thromboplastin Time 29.9 SECONDS (22.3-36.8)
[2022-05-03 17:25] LABS: Troponin I < 0.012 ng/mL (0.000-0.034)
[2022-05-03 18:17] VITALS: BP 124/79; PULSE 77; RESP 15; TEMP 36.6; O2SAT 97
[2022-05-03 19:44] VITALS: BP 139/87; PULSE 63; RESP 16; O2SAT 98
--- NOTE | 2022-05-03 19:46 | ED.CHESTPAIN ---
HPI - Chest Pain General Chief Complaint: Chest Pain <Mague Anderson PA-C - Last Filed: 05/04/22 00:37> Stated Complaint: chest pain <Mague Anderson PA-C - Last Filed: 05/04/22 00:37> Time Seen by Provider: 05/03/22 19:45 <Mague Anderson PA-C - Last Filed: 05/04/22 00:37> History of Present Illness HPI narrative: Patient is a 61-year-old male with history of hyperlipidemia, obesity here for evaluation of chest tightness. Patient states that he feels like something is sitting on his chest for the past 24 hours. Possibly worse with exertion. Over the past 5 days he has had intermittent similar sensation has been more mild. Has taken Tylenol without relief of his symptoms. Reports associated nausea but no vomiting. Feels somewhat short of breath. Recently saw a real estate assistant over presence of q waves on his ecg but was not having chest pain at that time; was told no further workup necessary. <Mague Anderson PA-C - Last Filed: 05/04/22 00:37> Related Data Home Medications: Home Medications Medication Instructions Recorded Confirmed aspirin 81 mg chewable tablet 81 mg PO DAILY 01/06/19 05/04/22 atorvastatin 10 mg tablet (Lipitor) 40 mg PO DAILY 01/06/19 05/04/22 cetirizine 10 mg capsule (Zyrtec) 10 mg PO DAILY 01/06/19 05/04/22 cholecalciferol (vitamin D3) 25 1,000 unit PO DAILY 01/06/19 05/04/22 mcg (1,000 unit) capsule (Vitamin D3) citalopram 20 mg tablet (Celexa) 20 mg PO DAILY 01/06/19 05/04/22 docusate sodium 100 mg capsule 100 mg PO BID 01/06/19 05/04/22 (Colace) fenofibrate 160 mg tablet 160 mg PO DAILY 01/06/19 05/04/22 omeprazole magnesium 20 mg 40 mg PO DAILY 01/06/19 05/04/22 tablet,delayed release (Prilosec OTC) linaclotide 145 mcg capsule 145 mcg DAILY 11/11/20 05/04/22 (Linzess) famotidine 20 mg tablet 20 mg PO HS 05/04/22 05/04/22 latanoprost 0.005 % eye drops 1 drp LEFT EYE HS 05/04/22 05/04/22 <Mague Anderson PA-C - Last Filed: 05/04/22 00:37> Allergies/Adverse Reactions: Allergies Allergy/AdvReac Type Severity Reaction Status Date / Time No Known Allergies Allergy Verified 12/31/21 11:17 <Mague Anderson PA-C - Last Filed: 05/04/22 00:37> Review of Systems Review of Systems: Gen.: Denies fevers or chills Eyes: Denies eye pain or visual change ENT: Denies congestion Respiratory: Denies shortness of breath or cough CV: Reports chest pain GI: Denies abdominal pain nausea, emesis or diarrhea denies burning, urgency, frequency or hematuria Musculoskeletal: Denies back pain or muscle pain Neuro: Denies numbness, tingling, weakness or focal weakness Skin: Denies rash Except as documented, all other systems reviewed and negative <Mague Anderson PA-C - Last Filed: 05/04/22 00:37> [facility] Past Medical History Medical History: Medical History (Updated 05/04/22 @ 01:15 by Paco Carlos MD) Anxiety Depression Fracture, clavicle right,1979 GERD (gastroesophageal reflux disease) HLD (hyperlipidemia) <Mague Anderson PA-C - Last Filed: 05/04/22 00:37> Surgical History Surgical History: Surgical History History of cholecystectomy <Mague Anderson PA-C - Last Filed: 05/04/22 00:37> Family History Family History: Family History Sibling Acute myocardial infarction, Onset Age: 48 Mother Breast cancer <Mague Anderson PA-C - Last Filed: 05/04/22 00:37> Social History Social History: Social History Smoking status: Never smoker Alcohol intake: never Substance use: never Substance use type: does not use Lack of Transportation: No Lack of Food: Never True Current Housing: I Have Housing Concerned About Future Housing: No Difficulty Paying Gas/Electric Bills: No Diff
[2022-05-03 20:27] LABS: Troponin I < 0.012 ng/mL (0.000-0.034)
[2022-05-03] MEDS: ASPIRIN 81 MG CHEWABLE TABLET 324 MG PO (20:28)
[2022-05-03] MEDS: NITROGLYCERIN SL 0.4 MG TABLET SUBLINGUAL (20:29)
[2022-05-03 20:30] VITALS: BP 138/85; PULSE 62; RESP 18; O2SAT 98
[2022-05-03] MEDS: ONDANSETRON INJ 4 MG/2 ML VIAL IV PUSH (20:47)
[2022-05-03] MEDS: BELLADONNA ALK/PHENOB ELIX 10 ML, MAG HYDROX/ALUMINUM HYD/SIMETH 30 ML, LIDOCAINE HCL 2... PO (21:40)
[2022-05-03 21:41] VITALS: BP 101/60; PULSE 65; RESP 18; O2SAT 98
--- NOTE | 2022-05-03 22:14 | PM.IMHP ---
H&P: HPI History of Present Illness Date/Time: 05/03/22 22:14 Chief Complaint: Chest pain Narrative: This is a 61-year-old male with past medical history significant for dyslipidemia, glaucoma, GERD, generalized anxiety, depression. Patient comes to the emergency room due to retrosternal chest pain for 4 days that has been persistent rate set at 8/10 in intensity tried Tylenol at home but did not work pain is not accompanied by diaphoresis or lightheadedness or dizziness or syncope or near syncope no nausea, no vomiting, no alleviating factors no aggravating factors although was relieved by nitro, nonradiating, has been in his usual state of health denies ankle swelling or leg swelling, no PND, no orthopnea, no fevers, no rigors, no chills. Preliminary workup has been essentially nonrevealing patient is been admitted for further evaluation management and treatment. Review of Systems Review of Systems: Retrosternal chest pain Constitutional: Constitutional: Denies chills, Denies fatigue, Denies fever(s), Denies lethargy, Denies malaise, Denies night sweats and Denies weakness Eyes: Eyes: Denies change in vision ENT: Denies dysphagia, Denies vertigo, Denies dizziness and Denies odynophagia Cardiovascular: Cardiovascular: Reports chest pain, Denies syncope, Denies irregular heart rhythm, Denies leg edema, Denies lightheadedness, Denies radiating jaw, neck or arm pain, Denies palpitations, Denies dyspnea on exertion, Denies orthopnea and Denies paroxysmal nocturnal dyspnea Respiratory: Respiratory: Denies chest congestion, Denies cough, Denies excessive phlegm production, Denies pain on inspiration and Denies dyspnea on exertion Gastrointestinal: Gastrointestinal: Denies abdominal pain, Denies dyspepsia, Denies heartburn, Denies diarrhea, Denies loose stools, Reports nausea (One episode after nitro) and Denies vomiting Genitourinary: Genitourinary: Denies dysuria Musculoskeletal: Musculoskeletal: Denies back pain, Denies myalgias and Denies muscle weakness Integumentary/Breasts: Skin/Breast: Denies rash Neurologic: Denies focal weakness and Denies Sensory deficit (Neuro) Psychiatric: Psychiatric: Reports no additional psychiatric complaints and Reports as per HPI Endocrine: Endocrine: Denies cold intolerance, Denies flushing, Denies heat intolerance, Denies polyphagia, Denies polydipsia and Denies palpitations Hematologic/Lymphatic: Hematologic/Lymphatic: Reports no additional hematologic/lymphatic complaints and Reports as per HPI Allergic/Immunologic: Allergic/Immunologic: Reports no additional allergic/immunologic complaints and Reports as per HPI PMFSH Past Medical History Medical History (Updated 05/04/22 @ 01:15 by Paco Carlos MD) Anxiety Depression Fracture, clavicle right,1979 GERD (gastroesophageal reflux disease) HLD (hyperlipidemia) Surgical History Surgical History History of cholecystectomy Family History Family History Sibling Acute myocardial infarction, Onset Age: 48 Mother Breast cancer Social History Social History Smoking status: Never smoker Alcohol intake: never Substance use: never Substance use type: does not use Lack of Transportation: No Lack of Food: Never True Current Housing: I Have Housing Concerned About Future Housing: No Difficulty Paying Gas/Electric Bills: No Difficulty Paying for Meds: No Currently Unemployed: No Education: Decline to Answer Difficulty w/ Childcare or Family Care: No Spiritual care concerns: No Meds Home Medications and Allergies Home Medications Medication Instructions Recorded Confirmed Type aspirin 81 mg chewable tablet 81 mg PO DAILY 01/06/19 05/04/22 History atorvastatin 10 mg tablet (Lipitor) 40 mg PO DAILY 01/06/19 05/04/22 History christie
[2022-05-03 22:33] VITALS: BP 129/80; PULSE 59; RESP 16; O2SAT 98
[2022-05-03] MEDS: SODIUM CHLORIDE 0.9% IV 1,000 ML 125 ML IV CONT (22:33)
--- NOTE | 2022-05-03 23:06 | PC.NURSE ---
Assumed care of pt. at this time. Report from ESSIE Gardiner
[2022-05-03 23:07] LABS: Troponin I < 0.012 ng/mL (0.000-0.034)
[2022-05-04] VITALS (10 sets, daily range): BP systolic 108–120; BP diastolic 65–78; PULSE 58–79; RESP 14–20; TEMP 36–36.6; O2SAT 93–98; BMI 36.5; BMI 36.9
--- NOTE | 2022-05-04 00:25 | ADMGEN ---
This patient, Yamil Mariscal, was admitted to IMU Room 202-01 AT 0025. Patient/family oriented to hospital policies and general routines including ID bracelet, bed and alarms, visiting hours, pain management, procedures, bathroom and other care routines, personal items, smoking policy, room service/diet, and visiting hours. Information on how to activate the Rapid Response Team has been discussed. Patient/Family are encouraged to report perceived risks to care and to ask questions if they do not understand what they are told or what they should do.
[2022-05-04] MEDS: ACETAMINOPHEN 500 MG TABLET 1000 MG PO (01:30)
[2022-05-04] MEDS: traZODone HCL 50 MG TABLET PO (01:30)
--- NOTE | 2022-05-04 06:00 | ECHO_ITS ---
Patient Info Name: Yamil Mariscal Age: 61 years : 1960 Gender: Male Ht: 71 in Wt: 261 lbs BSA: 2.48 m2 HR: 63 bpm BP: 120 / 73 mmHg Heart Rhythm: Sinus Rhythm Technical Quality: Fair Exam Date: 05/04/2022 8:15 AM Exam Location: [facility] Pulmonary Patient Status: Inpatient Admit Date: 05/03/2022 Staff Ordering Physician: Mague Anderson PA-C Display Designer: Payton Dela Cruz RDCS Attending Provider: Paco Carlos MD Referring Physician: Justin ONEAL; Exam Type: CA echo dop color flow w con Study Info Indications R07.9 - Chest pain, unspecified Complete two-dimensional, color flow and Doppler transthoracic echocardiogram is performed with contrast to opacify the left ventricle and to improve the deliniation of the left ventricle endocardial borders. Contrast/Agitated Saline Contrast/Ag. Saline: Definity Amount: 3.00 ml Administered By: Payton Dela Cruz RDCS Existing IV Access: Yes IV Access Condition: patent with no signs of infiltration Summary 1. Definity contrast administered improved wall motion interpretation. 2. Left ventricular chamber dimension is normal. 3. Left ventricular systolic function is normal, estimated at 65-70%. 4. The left ventricular diastolic function is grade II diastolic dysfunction. 5. E/e' 10 is mildly elevated. 6. No pulmonary hypertension, estimated pulmonary arterial systolic pressure is 18 mmHg. Left Ventricle E/e' 10 is mildly elevated. Definity contrast administered improved wall motion interpretation. Left ventricular chamber dimension is normal. Left ventricular systolic function is normal, estimated at 65-70%. The left ventricular diastolic function is grade II diastolic dysfunction. Right Ventricle Right ventricular systolic function is normal and with normal TAPSE 2.4 cm. Right ventricular chamber dimension is normal. Left Atria Left atrial chamber dimension is normal. Right Atria Right atrial chamber dimension is normal. Aortic Valve The aortic valve is trileaflet. There is no aortic valve stenosis. There is no aortic valve regurgitation. Pulmonic Valve There is no pulmonic regurgitation. Mitral Valve There is no mitral valve stenosis. There is no mitral valve regurgitation. Tricuspid Valve There is no tricuspid valve regurgitation. No pulmonary hypertension, estimated pulmonary arterial systolic pressure is 18 mmHg. Pericardium/Pleural There is no pericardial effusion. Inferior Vena Cava Normal inferior vena cava with >50% collapse upon inspiration consistent with normal right atrial pressure, 5 mmHg. Aorta The aortic root size at the sinus of Valsalva is normal. Left Ventricular Outflow Tract Name Value Normal LVOT 2D LVOT Diameter 2.13 cm LVOT Doppler LVOT Peak Gradient 5 mmHg LVOT Mean Gradient 2 mmHg LVOT VTI 26.93 cm LVOT VTI/AV VTI Ratio 0.81 LVOT Stroke Volume 95.71 ml LVOT CO
[2022-05-04] MEDS: SODIUM CHLORIDE 0.9% IV 1,000 ML 125 ML IV CONT (07:22)
[2022-05-04] MEDS: PERFLUTREN LIPID MICROSPHERES 1.5 ML VIAL DILUTED TO 10 ML TOTAL VOLUME IV PUSH (08:47)
--- NOTE | 2022-05-04 08:47 | IVDEFINITY ---
Prior to administration of IV Definity the patient was educated on the risks and benefits of the imaging enhancing agent including potential adverse side effects. The patient verbalized understanding. Allergies were verified. No exclusion criteria were identified and at least one of the following inclusion criteria were met: 1) physician request, 2) patient technically difficult to image (per the [place] [employer] of Echocardi[employer] guidelines of two or more segments not discernable within the apical view), or 3) questionable left ventricular function. ?
[2022-05-04] MEDS: LORATADINE 10 MG TABLET PO (09:38)
[2022-05-04] MEDS: FENOFIBRATE 160 MG TABLET PO (09:38)
[2022-05-04] MEDS: DOCUSATE SODIUM 100 MG CAPSULE PO (09:38)
[2022-05-04] MEDS: ATORVASTATIN 40 MG TABLET PO (09:39)
[2022-05-04] MEDS: ASPIRIN 81 MG CHEWABLE TABLET PO (09:39)
[2022-05-04] MEDS: CHOLECALCIFEROL 1,000 UNITS TABLET 1000 UNITS PO (09:39)
[2022-05-04] MEDS: PANTOPRAZOLE 40 MG TABLET PO (09:39)
[2022-05-04] MEDS: CITALOPRAM HYDROBROMIDE 20 MG TABLET PO (09:39)
--- NOTE | 2022-05-04 11:56 | PM.IMPN ---
Progress Note: A&P Assessment and Plan (1) Chest pain: Code(s): R07.9 - Chest pain, unspecified Status: Acute Assessment and Plan: Unsure of etiology, do not suspect cardiac Appreciate cardiology consultation, follow stress testing results Echo ordered and pending Continue monitoring telemetry (2) GERD (gastroesophageal reflux disease): Code(s): K21.9 - Gastro-esophageal reflux disease without esophagitis Status: Acute Assessment and Plan: Continue Pepcid, could be contributing to patient's symptoms, monitor (3) Depression: Code(s): F32.9 - Major depressive disorder, single episode, unspecified Status: Acute Assessment and Plan: Stable, continue home Celexa (4) IBS (irritable bowel syndrome): Code(s): K58.9 - Irritable bowel syndrome without diarrhea Status: Acute Assessment and Plan: Stable, continue Linzess Plan DVT prophylaxis with SCDs GI prophylaxis with Pepcid Code status full code Subjective Date/time seen: 05/04/22 11:56 Interval history: 61-year-old male with past medical history significant for GERD, depression/anxiety, hyperlipidemia presenting with chest pain and was admitted for cardiology consultation and stress testing. EKG nonacute, troponins negative x3. Review of Systems Review of Systems: 12 point review of systems was assessed and was negative except as noted in the HPI Exam Narrative: General: No acute distress, alert and oriented per baseline HEENT: Atraumatic, normocephalic, mucous membranes moist CV: Regular rate and rhythm, S1, S2 Lungs: Clear to auscultation bilaterally, no rales or crackles noted, no wheezes, good air entry Abdomen: Soft, nontender, nondistended Extremities: Normal to inspection Skin: No rashes noted, no lesions or wounds seen Psych: Euthymic, normal affect Objective Data Vital Signs Vital Signs: Vital Signs - 24 hr 05/03/22 18:17 05/03/22 19:44 05/03/22 19:44 Temperature 97.8 F Pulse Rate 77 63 Respiratory Rate 15 16 Blood Pressure 124/79 139/87 Pulse Oximetry 97 98 Oxygen Delivery Room Air Room Air Room Air 05/03/22 20:30 05/03/22 21:41 05/03/22 22:33 Temperature Pulse Rate 62 65 59 L Respiratory Rate 18 18 16 Blood Pressure 138/85 101/60 129/80 Pulse Oximetry 98 98 98 Oxygen Delivery 05/04/22 00:10 05/04/22 00:40 05/04/22 00:52 Temperature 97.3 F L Pulse Rate 63 62 62 Respiratory Rate 14 18 18 Blood Pressure 108/78 115/68 Pulse Oximetry 93 98 98 Oxygen Delivery Room Air 05/04/22 02:00 05/04/22 04:00 05/04/22 04:00 Temperature Pulse Rate 67 79 79 Respiratory Rate 18 Blood Pressure Pulse Oximetry 98 Oxygen Delivery Room Air 05/04/22 04:00 05/04/22 06:00 05/04/22 08:08 Temperature 97.8 F 96.8 F L Pulse Rate 67 63 58 L Respiratory Rate 18 20 Blood Pressure 120/73 113/65 Pulse Oximetry 96 97 Oxygen Delivery 05/04/22 08:00 05/04/22 10:00 05/04/22 08:00 Temperature Pulse Rate 59 L 61 Respiratory Rate Blood Pressure Pulse Oximetry 97 Oxygen Delivery Room Air Intake/Output Intake/Output: Intake & Output 05/01/22 05/02/22 05/03/22 05/04/22 23:59 23:59 23:59 23:59 Intake Total 1100 Output Total 1750 Balance -650 Meds/Results Medications: Active Medications Generic Name Dose Route Start Last Admin Trade Name Oscar PRN Reason Stop Dose Admin Aspirin 81 mg 05/04/22 08:00 05/04/22 09:39 Aspirin 81 Mg Chewable Tablet PO 81 mg DAILY@0800 TEDDY Administration Atorvastatin Calcium 40 mg 05/04/22 09:00 05/04/22 09:39 Atorvastatin 40 Mg Tablet PO 40 mg DAILY TEDDY Administration Citalopram Hydrobromide 20 mg 05/04/22 09:00 05/04/22 09:39 Citalopram Hydrobromide 20 Mg Tablet PO 20 mg DAILY TEDDY Administration Docusate Sodium 100 mg 05/04/22 09:00 05/04/22 09:38 Docusate Sodium 100 Mg Capsule PO 100 mg
[2022-05-04 14:56] LABS: Basophils Percent Auto 0.6 % (0.2-1.2); Eosinophils Absolute Auto 0.1 K/mm3 (0-0.3); Eosinophils Percent Auto 1.1 % (0-4.4); Hematocrit 46.6 % (42.0-52.0); Hemoglobin 14.9 g/dL (14.0-18.0); Immature Granulocyte Absolute 0.03 K/mm3 (0.00-0.031); Immature Granulocyte Percent A 0.4 % (0-0.5); Lymphocytes Absolute Auto 1.32 K/mm3 (0.9-3.2); Lymphocytes Percent Auto 18.8 % (18.3-44.2); Mean Corpuscular Hemoglobin 28.7 pg (26-34); Mean Corpuscular Volume 89.8 fl (80-100); Mean Platelet Volume 10.3 fl (7.4-10.4); Monocytes Absolute Auto 0.5 K/mm3 (0.1-0.6); Monocytes Percent Auto 7.7 % (2.6-8.5); Neutrophils Percent Auto 71.4 % (45.5-73.1); Platelet Count Result 264 k/mm3 (150-375); Red Blood Count 5.19 M/mm3 (4.6-6.20); Red Cell Distribution Width 13.7 % (11.5-14.5)
--- NOTE | 2022-05-04 15:00 | PM.DS ---
DS: Admitting Diagnosis Discharge Date 05/04/22 Admitting Diagnosis chest pain DS: Discharge Diagnosis Discharge Diagnosis (1) Chest pain: Code(s): R07.9 - Chest pain, unspecified Status: Acute Assessment and Plan: Unsure of etiology, do not suspect cardiac Appreciate cardiology consultation, follow stress testing results Echo ordered and pending Continue monitoring telemetry (2) GERD (gastroesophageal reflux disease): Code(s): K21.9 - Gastro-esophageal reflux disease without esophagitis Status: Acute Assessment and Plan: Continue Pepcid, could be contributing to patient's symptoms, monitor (3) Depression: Code(s): F32.9 - Major depressive disorder, single episode, unspecified Status: Acute Assessment and Plan: Stable, continue home Celexa (4) IBS (irritable bowel syndrome): Code(s): K58.9 - Irritable bowel syndrome without diarrhea Status: Acute Assessment and Plan: Stable, continue Linzess Plan DVT prophylaxis with SCDs GI prophylaxis with Pepcid Code status full code DS: Summary Hospital Course Hospital Course: 61 y/o M with PMH of HLD, obesity is p/w chest tightness worsened with exertion, intermittent over the last 5 days, some occasional SOB. Trop neg x 3. ECG unremarkable. Stress testing was negative for ischemia. Echo did show diastolic HF, grade II, with normal EF, no pulm HTN or significant valvular disease. The patient was started on jardiance and referred back to cardiology. He will likely need an TRINA inhibitor as well for better blood pressure control in the future. He was discharged in stable condition with close outpatient follow up with cardiology and his family doctor. Time Spent with Patient Time attestation: Total time spent providing and/or coordinating discharge services: Exam Narrative: General: No acute distress, alert and oriented per baseline HEENT: Atraumatic, normocephalic, mucous membranes moist CV: Regular rate and rhythm, S1, S2 Lungs: Clear to auscultation bilaterally, no rales or crackles noted, no wheezes, good air entry Abdomen: Soft, nontender, nondistended Extremities: Normal to inspection Skin: No rashes noted, no lesions or wounds seen Psych: Euthymic, normal affect DS: Data Data Completed and Pending Labs on day of discharge: Labs from last 24 hours 05/04/22 05/04/22 05/03/22 14:40 14:40 22:36 WBC 7.0 RBC 5.19 Hgb 14.9 Hct 46.6 MCV 89.8 MCH 28.7 MCHC 32.0 RDW 13.7 Plt Count 264 MPV 10.3 Immature Gran % (Auto) 0.4 Neut % (Auto) 71.4 Lymph % (Auto) 18.8 [place] % (Auto) 7.7 Eos % (Auto) 1.1 Baso % (Auto) 0.6 Lymph # (Auto) 1.32 [place] # (Auto) 0.5 Eos # (Auto) 0.1 Baso # (Auto) 0.0 Abs Immat Gran (auto) 0.03 Absolute Neuts (auto) 5.0 Absolute Nucleated RBC 0.0 Nucleated RBC % 0.0 PT INR APTT Sodium Pending Potassium Pending Chloride Pending Carbon Dioxide Pending Anion Gap Pending BUN Pending Creatinine Pending Estim Creat Clear Calc Pending Estimated GFR Pending Glucose Pending Calcium Pending Total Bilirubin Pending AST Pending ALT Pending Alkaline Phosphatase Pending Troponin I < 0.012 Total Protein Pending Albumin Pending Lipase 05/03/22 05/03/22 05/03/22 19:57 16:44 16:44 WBC 8.3 RBC 5.01 Hgb 14.6 Hct 44.0 MCV 87.8 MCH 29.1 MCHC 33.2 RDW 13.6 Plt Count 267 MPV 10.4 Immature Gran % (Auto) 0.2 Neut % (Auto) 76.9 H Lymph % (Auto) 14.7 L [place] % (Auto) 6.7 Eos % (Auto) 1.0 Baso % (Auto) 0.5 Lymph # (Auto) 1.23 [place] # (Auto) 0.6 Eos # (Auto) 0.1 Baso # (Auto) 0.0 Abs Immat Gran (auto) 0.02 Absolute Neuts (auto) 6.4 Absolute Nucleated RBC 0.0 Nucleated RBC % 0.0 PT INR APTT Sodium 136 L Potassium 3.9
[2022-05-04 15:11] LABS: Alanine Aminotransferase 38 U/L (6-50); Albumin Level 4.7 g/dL (3.5-5.1); Alkaline Phosphatase 44 U/L (38-126); Anion Gap 6 mmol/L (8-16); Aspartate Amino Transferase 33 U/L (17-59); Bilirubin,Total 0.7 mg/dL (0.2-1.3); Blood Urea Nitrogen 12 mg/dL (9-20); Calcium 9.2 mg/dL (8.4-10.2); Carbon Dioxide 28 mmol/L (22-30); Chloride 102 mmol/L (98-107); Estimated CRCL calculation 139 ml/min; Estimated Glomerular Filt Rate > 60; Glucose 110 mg/dL (65-110); Potassium 3.7 mmol/L (3.4-5.0); Sodium 136 mmol/L (137-145)
--- NOTE | 2022-05-04 22:14 | EST_ITS ---
Patient Info Name: Yamil Mariscal Age: 61 years : 1960 Gender: Male Ht: 71 in Wt: 261 lbs BSA: 2.48 m2 HR: 57 bpm BP: 118 / 77 mmHg Heart Rhythm: Sinus Rhythm Exam Date: 05/04/2022 12:32 PM Exam Location: [facility] Stress Patient Status: Inpatient Admit Date: 05/03/2022 Staff Ordering Physician: Mague Anderson PA-C Attending Provider: Paco Carlos MD Exercise Technologist: Cori Beauchamp CT Exercise Physician: Ovidio Gallegos DO Exam Type: CA stress maria g w NM Study Info Indications R07.9 - Chest pain, unspecified A regadenoson stress test was performed. Summary 1. 1. Negative lexiscan stress test for ischemic ST changes by ECG criteria. 2. 2. Stable hemodynamics throughout the test. 3. 3. Nuclear scan to follow and will be reported separately. Please correlate with it. 4. 4. Patient informed of the above results. Protocol: Lexiscan Stress ECG Details Stage: REST Duration (min): 1 min : 4 sec HR (bpm): 59 SBP (mmHg): 118 DBP (mmHg): 77 Stage: REST Duration (min): 8 min : 34 sec HR (bpm): 59 SBP (mmHg): 118 DBP (mmHg): 77 Stage: STAGE 1 Duration (min): 1 min : 0 sec HR (bpm): 82 SBP (mmHg): 136 DBP (mmHg): 61 Stage: RECOVERY Duration (min): 1 min : 0 sec HR (bpm): 91 SBP (mmHg): 136 DBP (mmHg): 61 Stage: RECOVERY Duration (min): 2 min : 0 sec HR (bpm): 89 SBP (mmHg): 136 DBP (mmHg): 61 Stage: RECOVERY Duration (min): 3 min : 0 sec HR (bpm): 84 SBP (mmHg): 120 DBP (mmHg): 67 Stage: RECOVERY Duration (min): 4 min : 0 sec HR (bpm): 87 SBP (mmHg): 120 DBP (mmHg): 67 Stage: RECOVERY Duration (min): 5 min : 0 sec HR (bpm): 71 SBP (mmHg): 130 DBP (mmHg): 67 Stage: RECOVERY Duration (min): 5 min : 21 sec HR (bpm): 73 SBP (mmHg): 130 DBP (mmHg): 67 Rest HR: 59 bpm Peak HR: 92 bpm Rest Sys BP: 118 mmHg Peak Sys BP: 136 mmHg Max Pred HR: 158 bpm % Max Pred HR: 58 % Target HR: 134 bpm Max RPP: 12,512 bpm*mmHg Termination Reason: Completed protocol Cardiac Symptoms: Chest pain, Shortness of breath Total Time: 1 min : 0 sec Rest Myles BP: 77 mmHg Peak Myles BP: 61 mmHg Total Dose: 0.4 mg Resting ECG Sinus rhythm. Stress ECG No ST changes. Aminophylline 100 mg IV x1 given due to intolerable side effects. Arrhythmias None. Report Signatures
== END 2022-05-04 16:12 | disposition home or self-care (01) ==
LOC: ANHED 21:50 → ANHIMU 05-04 00:17
PROVIDERS: Emergency Medicine; Admitting Provider Internal Medicine; Emergency Provider Physician Assistant; Visit Provider Student in an Organized Health Care Education/Training Program
DX: R07.9 Chest pain, unspecified (principal); K21.9 Gastro-esophageal reflux disease without esophagitis; F32.9 Major depressive disorder, single episode, unspecified; K58.9 Irritable bowel syndrome, unspecified; I49.1 Atrial premature depolarization; F41.1 Generalized anxiety disorder; I51.89 Other ill-defined heart diseases; E78.5 Hyperlipidemia, unspecified; H40.9 Unspecified glaucoma; E66.9 Obesity, unspecified; Z68.36 Body mass index [BMI] 36.0-36.9, adult; F41.9 Anxiety disorder, unspecified; Z79.82 Long term (current) use of aspirin; Z79.899 Other long term (current) drug therapy; Z82.49 Family history of ischemic heart disease and other diseases of the circulatory system
CPT/HCPCS: 36415; 71046; 78452; 80053; 83690; 84484; 85025; 85610; 85730; 93005; 93017; 96361; 96374; 99285; A9270; A9502; C8929; G0378; J0280; J2405; J2785; J7030; Q9957

== ENCOUNTER 2023-06-06 08:49 | Outpatient (CLI) | payer OTHER, SELFPAY ==
--- NOTE | 2023-06-16 20:54 | WPDSLEEPSTUD ---
Sleep Study Date of Study: 06/06/23 Ordering Provider: Flako Stephens APRN Interpreting Physician: Cristy Hernadez DO Sleep Study Type: Split Polysomnogram Height: 1.8 m Weight: 118.841 kg Body Mass Index: 36.5 Neck Circumference (inches): 17.5 [place]: 8 Reason for Sleep Study Previously diagnosed MAYI on CPAP. Switched to an oral appliance but lost realignment fixture and developed underbite. Dentist wants him to be on CPAP while he fixes the dental alignment. Sleep History The patient is a 63-year-old male with anxiety, depression, GERD, dyslipidemia, glaucoma, irritable bowel syndrome and previously diagnosed sleep apnea that had a sleep study ordered by the pulmonary group so the patient could requalify for PAP therapy. The patient denies awakening from sleep short of breath. He denies awakening at night with heartburn, belching or cough. He frequently snores and is occasionally loud enough that others complain. He rarely has trouble sleeping when he has a cold. He denies waking up gasping for air throughout the night. He rarely has breathing problems at night observed by himself or others. He occasionally sweats excessively at night. He denies having heart palpitations or irregular heartbeats during the night. He occasionally falls asleep during the day but never while driving. He denies sleep paralysis and cataplexy. He occasionally has trouble at school or work due to sleepiness. He occasionally experiences vivid dreamlike scenes upon awakening or falling asleep. He denies feeling afraid of going to sleep. He occasionally has nightmares. He occasionally remembers his dreams. He frequently has thoughts racing through his mind. He rarely feels sad, depressed or anxious. He occasionally has muscular tension. He rarely notices parts of his body jerk. He occasionally kicks during the night. He occasionally has crawling and aching feelings in his legs and occasionally has leg pain during the night. He rarely grinds his teeth during sleep and rarely awakens with morning jaw pain. He is frequently bothered by pain during the day and frequently awakened by pain during the night. He occasionally wakes up feeling stiff in the morning. He rarely wakes up with sore or achy muscles. He rarely wakes up with pain in the neck, spine and other joints. He goes to bed between 1-1:30 a.m. on both weekdays and weekends. It takes him 20-40 minutes to fall asleep. He wakes up 2-3 times throughout the night to urinate and is able to fall back asleep within 10 minutes. He wakes up between 9-9:30 a.m. on both weekdays and weekends. He typically gets 7-9 hours of sleep per night. He will stay in bed for 10-20 minutes after waking up in the morning. He currently lives with his spouse. He denies consuming any caffeinated beverages within 2 hours of bedtime. He will walks his dog for a mi prior to going to bed. He will watch television before falling asleep. He will rarely take naps in the afternoon or the evening. He consumes 1-2 caffeinated sodas per day. He denies tobacco, alcohol and recreational drug PMFSH Past Medical History Medical History Anxiety Depression Fracture, clavicle right,1979 GERD (gastroesophageal reflux disease) HLD (hyperlipidemia) IBS (irritable bowel syndrome) Surgical History Surgical History History of cholecystectomy Family History Family History Sibling Acute myocardial infarction, Onset Age: 48 Mother Breast cancer Social History Social History Smoking status: Never smoker Alcohol intake: never Substance use: never Substance use type: does not use Do You Feel Safe in your Home?: Yes Lack of Transportation: No Lack of Food: Never True Current Jeff
[2023-06-16 21:01] VITALS: BMI 36.5
== END 2023-06-07 06:37 | disposition home or self-care (01) ==
PROVIDERS: Visit Provider Nurse Practitioner Family
DX: G47.33 Obstructive sleep apnea (adult) (pediatric) (principal)
CPT/HCPCS: 95811

== ENCOUNTER 2024-01-14 10:54 | Outpatient (CLI) | payer OTHER, SELFPAY ==
[2024-01-14 11:37] LABS: Cholesterol 154 mg/dL (0-200); HDL Direct 47 mg/dL; Triglycerides 115 mg/dL (<150)
[2024-01-14 11:48] LABS: LDL Cholesterol Direct 72 mg/dL
== END 2024-01-14 10:55 | disposition home or self-care (01) ==
LOC: ANHLAB 10:55
PROVIDERS: Visit Provider Internal Medicine Cardiovascular Disease
DX: E78.5 Hyperlipidemia, unspecified (principal)
CPT/HCPCS: 36415; 80061

== ENCOUNTER 2024-05-22 13:22 | Emergency (ER) | payer OTHER, SELFPAY ==
--- NOTE | ~2024-05-22 | XR_ITS ---
EXAMINATION: XR chest 2V 05/22/2024 13:45 INDICATION: Cough and chest congestion PROCEDURE: 2 view chest COMPARISON: 05/03/2022 FINDINGS: The lungs are clear. The cardiomediastinal silhouette is within normal limits. There are no pleural effusions. There is no pneumothorax suspected. IMPRESSION: 1: NO ACUTE CARDIOPULMONARY DISEASE. Reviewed, dictated and finalized at location A.
[2024-05-22 13:34] VITALS: BP 122/72; PULSE 65; RESP 20; TEMP 36.9; O2SAT 96
--- NOTE | 2024-05-22 13:40 | ED_ITS ---
HPI - URI/Sore Throat General Chief Complaint: Upper Respiratory Infection Stated Complaint: sore throat/ lungs feel like glass Time Seen by Provider: 05/22/24 13:35 Source: patient Mode of arrival: ambulatory Limitations: no limitations History of Present Illness HPI Narrative: Yamil is a 63-year-old male patient presenting to the clinic today with complaints of sore throat, nonproductive cough, and feels as though he is breathing glass x2 weeks. 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 Sees pulmonology for obstructive sleep apnea. Denies fever, chills, body aches. Does have some sinus congestion/pressure over the right ethmoid/maxilla. MD elicited complaint: sore throat Related Data Home Medications ?Medication ?Instructions ?Recorded ?Confirmed ?Last Taken ?Type aspirin 81 mg chewable tablet 81 mg PO DAILY 01/06/19 05/21/24 Unknown History atorvastatin 10 mg tablet (Lipitor) 40 mg PO DAILY 01/06/19 05/21/24 Unknown History cetirizine 10 mg capsule (Zyrtec) 10 mg PO DAILY 01/06/19 05/21/24 Unknown History cholecalciferol (vitamin D3) 25 1,000 unit PO DAILY 01/06/19 05/21/24 Unknown History mcg (1,000 unit) capsule (Vitamin D3) docusate sodium 100 mg capsule 100 mg PO BID 01/06/19 05/21/24 Unknown History (Colace) fenofibrate 160 mg tablet 160 mg PO DAILY 01/06/19 05/21/24 Unknown History omeprazole magnesium 20 mg 40 mg PO DAILY 01/06/19 05/21/24 Unknown History tablet,delayed release (Prilosec OTC) linaclotide 145 mcg capsule 145 mcg DAILY 11/11/20 05/21/24 Unknown History (Linzess) famotidine 20 mg tablet 20 mg PO HS 05/04/22 05/21/24 Unknown History latanoprost 0.005 % eye drops 1 drp LEFT EYE HS 05/04/22 05/21/24 Unknown History citalopram 20 mg tablet (Celexa) 10 mg PO DAILY 05/21/24 05/21/24 Unknown History Allergies Allergy/AdvReac Type Severity Reaction Status Date / Time No Known Allergies Allergy Verified 05/22/24 13:34 Review of Systems Review of Systems: Pertinent positives per HPI. Patient denies any fever, chills, rash, headache, visual changes, dizziness, cough, shortness of breath, chest pain, palpitations, nausea, vomiting, diarrhea, constipation, abdominal pain, or any urinary issues. [facility] [place] Past Medical History Medical History (Reviewed 05/21/24 @ 10:00 by Coco Kimbrough [facility]) IBS (irritable bowel syndrome) Anxiety Depression Fracture, clavicle right,1979 GERD (gastroesophageal reflux disease) HLD (hyperlipidemia) Surgical History Surgical History (Reviewed 05/21/24 @ 10:00 by Coco Kimbrough [facility]) History of cholecystectomy Family History Family History Sibling Acute myocardial infarction, Onset Age: 48 Mother Breast cancer Social History Social History (Reviewed 05/21/24 @ 10:00 by Coco Kimbrough [facility]) Smoking status: Never smoker Alcohol intake: never Substance use: never Substance use type: does not use Do You Feel Safe in your Home?: Yes Lack of Transportation: No Lack of Food: Never True Current Housing: I Have Housing Concerned About Future Housing: No Difficulty Paying Gas/Electric Bills: No Difficulty Paying for Meds: No Currently Unemployed: No Education: Bachelor's Degree Difficulty w/ Childcare or Family Care: No Spiritual care concerns: No Comments At the time of my signature, I reviewed and agree with the nursing past medical, surgical, social, and family history. There is no relevant family history per tinent to the patient complaint. Exam Narrative: General: Well-developed, well nourished, in no apparent distress Head: Normocephalic, atraumatic Eyes: Pupils equally round and reactive to light bilaterally, EOM intact, sclera and conjunctive clear, no discharge, lids normal Ears: TMs intact and clear, ear canals clear, no drainage, grossly hearing normal. Nose: Nares patent, yellow nasal discharge, severe inflammation to the right nare with scabbing, right ethmoid/maxillary sinus tenderness. Mouth: Oral pharynx without lesions or masses, good dentition, MMM. Neck: Supple, trachea midline, no enlargement of anterior or posterior cervical nodes, no thyroid masses or goiter palpable. Cardio: Regular rate and rhythm, s1 and s2 normal, no murmur appreciated. Resp: Clear to auscultation bilaterally, no rhonchi, rales, wheezing or rubs Course Course Emergency Course: Portions of this record may have been created with voice recognition software. Level of Care: Express Care Visit Vital Signs Vital signs: Vital Signs Temperature 36.9 C 05/22/24 13:34 Pulse Rate 65 05/22/24 13:34 Respiratory Rate 20 05/22/24 13:34 Blood Pressure 122/72 05/22/24 13:34 Pulse Oximetry 96 05/22/24 13:34 Oxygen Delivery Room Air 05/22/24 13:34 Temperature 36.9 C 05/22/24 13:34 Pulse Rate 65 05/22/24 13:34 Respiratory Rate 20 05/22/24 13:34 Blood Pressure 122/72 05/22/24 13:34 Pulse Oximetry 96 05/22/24 13:34 Oxygen Delivery Room Air 05/22/24 13:34 Vital signs reviewed MDM - URI/Sore Throat MDM Narrative Medical decision making narrative: At the time of visit patient is resting comfortably on the exam table. Patient appears to be nontoxic. Labs: Strep test was negative in the clinic today. Diagnostics: Chest x-ray is negative for any acute cardiopulmonary process. Plan: I suspect patient has sign of bronchitis. Prescription for Augmentin, prednisone, and albuterol inhaler was sent to the pharmacy. Supportive measures were discussed with the patient and they voiced understanding discharge instructions and agrees to treatment plan. Return precautions reviewed Differential Diagnosis Differential diagnosis: Likely upper respiratory infection, otitis media, sinusitis, viral infection, bronchitis, influenza, pharyngitis and other (COVID) Imaging Data Radiologist's impression: ITS Impressions Chest X-Ray 05/22/24 13:57 IMPRESSION: 1: NO ACUTE CARDIOPULMONARY DISEASE. Discharge Plan Discharge Clinical Impression: Bronchitis Sinusitis Qualifiers: Sinusitis location: maxillary Chronicity: acute Recurrence: non-recurrent Qualified Code(s): J01.00 - Acute maxillary sinusitis, unspecified Patient Disposition: Home, Self-Care Condition: Stable Instructions: Antibiotic Form, Sinusitis (ED), Acute Bronchitis (ED) Additional Instructions: Strep test was negative in the clinic today. Chest x-ray shows no acute cardiopulmonary process Take prescription medications only as prescribed-Augmentin, prednisone, and albuterol inhaler. Increase fluids and stay well hydrated Tylenol/motrin for pain/fever Flonase and OTC antihistamines as directed Vicks vapor rub to open sinuses Sinus rinses for congestion Cepacol spray, cough drops, throat lozenges, warm tea with honey/lemon, gargle salt water to soothe throat BRAT diet for diarrhea Clear liquids x 24 hours then advance as tolerated for nausea/vomiting Go to the ED if you develop a worsening in your condition- high fever not controlled by Tylenol or Motrin, dehydration, weakness, lethargy, shortness of breath, or chest pain. Follow up with your PCP in 3-5 days if symptoms persist. Patient Language: Persian Prescriptions: New prednisone 20 mg tablet 40 mg PO DAILY 5 Days Qty: 10 0RF albuterol sulfate 90 mcg/actuation HFA aerosol inhaler 2 puff inhalation Q4-6H PRN (Reason: shortness of breath or wheezing) 30 Days Qty: 8.5 0RF amoxicillin-pot clavulanate 875-125 mg tablet 1 tablet PO Q12H 10 Days Qty: 20 0RF No Action atorvastatin [Lipitor] 10 mg Tablet 40 mg PO DAILY docusate sodium [Colace] 100 mg Capsule 100 mg PO BID aspirin 81 mg Tablet,Chewable 81 mg PO DAILY cholecalciferol (vitamin D3) [Vitamin D3] 1,000 unit Capsule 1,000 unit PO DAILY omeprazole magnesium [Prilosec OTC] 20 mg Tablet,Delayed Release (Dr/Ec) 40 mg PO DAILY fenofibrate 160 mg Tablet 160 mg PO DAILY Zyrtec 10 mg Capsule 10 mg PO DAILY citalopram [Celexa] 20 mg tablet 10 mg PO DAILY metoprolol succinate 25 mg tablet extended release 24 hr 25 mg PO DAILY Qty: 30 5RF Linzess 145 mcg capsule 145 mcg DAILY latanoprost 0.005 % drops 1 drp LEFT EYE HS famotidine 20 mg Tablet 20 mg PO HS Follow-up/Referrals: Jaime,Arianna Erickson, MEDICAL RECORDS ADMINISTRATOR [Primary Care Provider] - Time of Disposition: 14:00 Quality NIHSS Nursing Documentation ED NIHSS nursing documentation: reviewed/agree
[2024-05-22 13:50] LABS: EDSTREPNEGPOS1 Negative (Negative)
== END 2024-05-22 14:04 | disposition home or self-care (01) ==
PROVIDERS: Emergency Provider Nurse Practitioner Family; PCP Nurse Practitioner Family
DX: J40 Bronchitis, not specified as acute or chronic (principal); J01.00 Acute maxillary sinusitis, unspecified; E78.5 Hyperlipidemia, unspecified; K21.9 Gastro-esophageal reflux disease without esophagitis; F41.9 Anxiety disorder, unspecified; F32.A Depression, unspecified; Z79.82 Long term (current) use of aspirin
CPT/HCPCS: 71046; 87880; 99213; G0463